=== PATIENT | female | born 1955 | race Caucasian/White ===

== ENCOUNTER 2019-06-05 04:26 | Inpatient (IN) | payer OTHER ==
[~2019-06-05] VITALS: Ht 165.1 cm; Wt 99.8 kg
[~2019-06-05 04:26] MED LIST: ERGO400 PO; LOSARTAN POTAS100 MG PO; METF500 PO; NATURAL LUTEIN20 MG PO; POTASSIUM CITR15 MEQ; Synthroid175 MCG PO; Vitamin B Comple1 EA PO
[2019-06-05 04:40] LABS: Calcium, Ionized (POC) 1.24 mmol/L (1.10-1.46); Chloride (POC) 104 mmol/L (98-108); Creatinine (POC) 0.7 mg/dL (0.6-1.0); Glucose (ISTAT POC) 237 mg/dL (70-99); Hemoglobin (POC) 15.3 g/dL (12.0-16.0); Potassium (POC) 3.9 mmol/L (3.5-5.5); Sodium (POC) 140 mmol/L (135-148); Total CO2 (POC) 27 mmol/L (21-32)
[2019-06-05 04:42] LABS: Hematocrit 45.3 % (33.0-51.0); Hemoglobin 15.2 g/dL (11.5-16.0); Mean Corpuscular HGB Conc 33.6 g/dL (31.5-36.5); Mean Corpuscular Volume 92 fL (80-100); Mean Platelet Volume 10.4 fL (9.1-12.4); Platelet Count 259 K/mm3 (150-400); RDW Coefficient Variation 13.2 % (11.7-14.2); RDW Standard Deviation 44.1 fL (35.1-46.3); White Blood Cell Count 15.83 K/mm3 (4.00-11.30)
[2019-06-05 04:56] LABS: International Normalized Ratio 0.98; Prothrombin Time Results 10.4 Sec (9.7-11.5)
[2019-06-05] MEDS ORDERED: METOPROLOL (04:57)
[2019-06-05] MEDS ORDERED: ALLOPURINOL (04:57)
[2019-06-05] MEDS ORDERED: LASIX (04:57)
[2019-06-05 05:04] LABS: Alanine Aminotransfer (ALT/SGP 132 U/L (12-78); Albumin, Blood 3.7 g/dL (3.4-5.0); Alk Phos 81 U/L (50-136); Anion Gap 8 mmol/L (6-16); Aspartate Aminotrans (AST/SGOT 79 U/L (12-37); Bilirubin, Total 0.5 mg/dL (0.1-1.0); Blood Urea Nitrogen 27 mg/dL (8-24); CHOL/HDL RATIO 9.3; CO2, Blood 27 mmol/L (21-32); Calcium, Blood 9.9 mg/dL (8.5-10.1); Chloride, Blood 105 mmol/L (98-108); Cholesterol 214 mg/dL (50-200); Creatinine, Blood 0.68 mg/dL (0.40-1.00); Globulin, Blood 3.7 g/dL (2.2-4.0); Glomerular Filtration Rate >60 (60-); Glucose, Blood 233 mg/dL (70-99); HDL Cholesterol 23 mg/dL (>39); LDL/HDL RATIO 5.5; Low Density Lipoprotein Chol 127 mg/dL (0-110); Magnesium, Blood 2.1 mg/dL (1.6-2.4); Potassium, Blood 3.9 mmol/L (3.5-5.5); Sodium, Blood 140 mmol/L (136-145); Total Protein, Blood 7.4 g/dL (6.4-8.2); Triglycerides 319 mg/dL (30-160); Very Low Density Lipoprot Chol 63 mg/dL (6-32)
--- NOTE | 2019-06-05 06:16 | NUR ---
ADMIT TO ICU-6 FROM SPLUNK ARCHITECT. PT IS ALERT, VSS, MONITOR SHOWS NSR 80'S. R FOREARM W ARMBOARD IN PLACE, TR BAND IS FULLY INFLATED W 10CC. R HAND IS PINK, WARM & SENSATION INTACT. NO BLEEDING AT SITE. MOVEMENT RESTRICTIONS REVIEWED W PT, AND VERBALIZES UNDERSTANDING. CALL LIGHT IN REACH & REVIEWED. REPORT TO DAYSHIFT.
--- NOTE | 2019-06-05 07:30 | NUR ---
BEGINNING OF SHIFT Assumed care at 0700. Bedside report received from Christina HARMON. Pt alert and oriented at time of report. States she is feeling much better than when she arrived to the hospital. Does not have chest pain. 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 Pt on 4 LPM NC. Does not wear O2 at baseline. SpO2 94%. Right wrist transradial access. TR band in place. Bruising noted beneath TR band. No drainage noted. Wrist immobilization board in place. Right wrist activity limitation reviewed. Bed in lowest position. Call light in reach. Pt denies need at this time.
[2019-06-05] MEDS ORDERED: ALLO100 PO (08:10)
[2019-06-05] MEDS ORDERED: FURO20 PO (08:11)
--- NOTE | 2019-06-05 08:39 | NUR ---
UPDATE Pt OOB to use commode. Sat in chair for about 45 minutes. Tolerating activity well. Meal tray at bedside. This RN reminded pt that she cannot use right hand to eat. 2 mL air removed from TR band.
--- NOTE | 2019-06-05 08:48 | NUR ---
CALL PLACED TO DR ALMANZA Inquired if provider wanted AM brilinta to be given as pt received 180 mg in ED. Brilinta to start tonight. Notified provider of pt's hypertension. Requested PRN meds for BP. Provider states plan to manage BP with current ordered medication. Notified provider of bruising to TR site. No additional orders at this time.
--- NOTE | 2019-06-05 11:02 | NUR ---
ECHOCARDIOGRAM COMPLETED
--- NOTE | 2019-06-05 13:48 | NUR ---
UPDATE Pt on room air since 0900. SpO2 90% or greater. Pt continues to tolerate OOB activity well. TR band off patient. Site dressed with tegaderm. Wrist immobilization board remains in place. Pt visiting with family/friends at bedside.
[2019-06-05] MEDS ORDERED: METO50ER PO (14:06)
[2019-06-05] MEDS ORDERED: EUTHYROX150 MCG PO (14:07)
[2019-06-05] MEDS ORDERED: POTA10T PO (14:10)
[2019-06-05] MEDS ORDERED: JARDIANCE10 MG PO (14:13)
--- NOTE | 2019-06-05 15:15 | NUR ---
UPDATE Discussed blood sugars with Dr Osorio. Also discussed home dose of synthroid. New orders given. Updated provider on pt condition, level of activity, and heart rate/rhtyhm per monitor. Pt okay for PCU status. Bedside report given to Di HARMON. Pt taken to PCU 9 via wheelchair, accomapnied by family and PCT Tanesha.
--- NOTE | 2019-06-05 18:33 | NUR ---
SHIFT SUMMARY. PT WAS TRANSFER FROM ICU, PT IS S/P ANGIO W/STENT PLACEMENT. PT HAS BEEN HYPERTENSIVE, PROVIDER AWARE AND MEDICATIONS GIVEN. PT HAS BEEN IND/SBA IN THE ROOM. R RADIAL SITE IS C/D/I SMALL AREA OF BRUISING NOTED NO HEMATOMA NOTED , PT DENIES ANY CHEST PAIN/PRESSURE N/V OR SOB. PT HAS FAMILY AT THE BEDSIDE. WILL CONTINUE TO MONITOR UNTIL REPORT IS GIVEN TO ONCOMING RN.
--- NOTE | 2019-06-05 20:00 | NUR ---
ASSUMED CARE PT IS ALEXIS CONCEPCIONX4 AND SITTING UP IN BED RESTING. R RADIAL SITE WITH CLEAR OPSITE DRESSING. THERE IS SLIGHT BRUISING AND SWELLING ABOVE RADIAL SITE THAT HAS REMAINED UNCHANGED PER DAYSHIFT RN. NO NOTED HEMATOMA OR DRAINAGE. ARM BOARD IN PLACE, PT PROVIDED WITH REMINDER TO DECREASE USAGE OF L ARM TEMPORARILY. WILL CONTINUE WITH ASSESSMENT AND MONITORING. BED IN LOW POSITION, CALL LIGHT IN REACH.
[2019-06-06 05:20] LABS: BASOPHILS ABSOLUTE AUTO 0.07 K/mm3 (0.00-0.23); BASOPHILS PERCENT AUTO 1 % (0-2); EOSINOPHILS ABSOLUTE AUTO 0.14 K/mm3 (0.00-0.68); EOSINOPHILS PERCENT AUTO 1 % (0-6); Hematocrit 43.5 % (33.0-51.0); Hemoglobin 14.2 g/dL (11.5-16.0); IMMATURE GRAN ABSOLUTE AUTO 0.05 K/mm3 (0.00-0.10); IMMATURE GRAN PERCENT AUTO 0 % (0-1); LYMPHOCYTES ABSOLUTE AUTO 1.83 K/mm3 (0.84-5.20); LYMPHOCYTES PERCENT AUTO 14 % (21-46); MONOCYTES ABSOLUTE AUTO 1.09 K/mm3 (0.16-1.47); MONOCYTES PERCENT AUTO 8 % (4-13); Mean Corpuscular HGB 30.7 pg (26.0-34.0); Mean Corpuscular HGB Conc 32.6 g/dL (31.5-36.5); Mean Corpuscular Volume 94 fL (80-100); Mean Platelet Volume 10.3 fL (9.1-12.4); NEUTROPHILS ABSOLUTE AUTO 9.82 K/mm3 (1.96-9.15); NEUTROPHILS PERCENT AUTO 76 % (41-73); Platelet Count 243 K/mm3 (150-400); RDW Coefficient Variation 13.7 % (11.7-14.2); Red Blood Cell Count 4.62 M/mm3 (3.80-5.20)
[2019-06-06 06:08] LABS: Anion Gap 6 mmol/L (6-16); Blood Urea Nitrogen 19 mg/dL (8-24); CO2, Blood 27 mmol/L (21-32); Calcium, Blood 10.5 mg/dL (8.5-10.1); Chloride, Blood 103 mmol/L (98-108); Creatinine, Blood 0.71 mg/dL (0.40-1.00); Glomerular Filtration Rate >60 (60-); Glucose, Blood 195 mg/dL (70-99); Sodium, Blood 136 mmol/L (136-145)
--- NOTE | 2019-06-06 06:18 | NUR ---
SHIFT SUMMARY PT HAS REMAINED AOX4 THROUGHOUT SHIFT. VSS. PLEASANT AND COOPERATIVE WITH CARE. PT HAS RESTED WELL THROUGHOUT MUCH OF THE NIGHT, WAKING EASILY FOR CARE. PT CONTINUES TO AMBULATE INDEPENDENTLY TO THE RESTROOM WITHOUT DIFFICULTY. R RADIAL SITE HAS REMAINED UNCHANGED THROUGHOUT THE NIGHT. PT DENIES PAIN TO RADIAL SITE OR FOREARM. DENIES PAIN OR DYSPNEA. NO OTHER CHANGES NOTED FROM INITIAL ASSESSMENT. WILL CONTINUE TO MONITOR AND REPORT TO ONCOMING SHIFT RN. BED IN LOW POSITION, CALL LIGHT IN REACH.
--- NOTE | 2019-06-06 07:49 | NUR ---
AM NOTE. ASSUMED CARE OF PT APROX 0700. PT IS A&Ox4 AND SBA/IND IN THE ROOM. PT IS S/P ANGIO W/STENT PLACEMENT. PT DENEIS CHEST PAIN BUT STATES SHE HAS SLIGHT SOB. FINE CRACKELS NOTED IN THE PT'S R MID LOBE, OTHER LOBES CLEAR. PT IS ON RA WITH O2 SATS >93%. PT'S VS STABLE. R RADIAL SITE IS C/D/I AND UNCHANGED FROM PREVIOUS ASSESSMENT. WILL CONTINUE TO MONITOR.
[2019-06-06] MEDS ORDERED: ASPI81CH PO (13:04)
[2019-06-06] MEDS ORDERED: ATOR80 PO (13:05)
[2019-06-06] MEDS ORDERED: CARV6.25 PO (13:06)
[2019-06-06] MEDS ORDERED: CLOP75 PO (13:07)
[2019-06-06] MEDS ORDERED: HYDCHL25 PO (13:08)
[2019-06-06] MEDS ORDERED: NITR.4SL SL (13:09)
--- NOTE | 2019-06-06 14:38 | NUR ---
PT D/C. PT D/C'D HOME. MEDICATIONS WERE CALLED IN TO PT'S PHARMACY OF CHOICE, MEDICATION EDUCATION PROVIDED AND D/C INSTRUCTIONS WELL. PT DENIES ANY CHEST PAIN/PRESSURE N/V OR SOB UPON D/C. IV WAS REMOVED WNL. ALL PT'S BELONGINGS PACKED AND SENT WITH PT.
== END 2019-06-06 14:26 | disposition home or self-care (01) | DRG 247 ==
LOC: ER 04:26 → ICUE 04:41 → ICUW 04:41 → ICUE 04:58 → PCU 15:38
PROVIDERS: Emergency Medicine; ADMIT Internal Medicine Cardiovascular Disease
PROC: 027034Z Dilation of Coronary Artery, One Artery with Drug-eluting Intraluminal Device, Percutaneous Approach (ICD-10-PCS; principal; 2019-06-05)
PROC: 02703ZZ Dilation of Coronary Artery, One Artery, Percutaneous Approach (ICD-10-PCS; 2019-06-05)
PROC: B240ZZ3 Ultrasonography of Single Coronary Artery, Intravascular (ICD-10-PCS; 2019-06-05)
PROC: B2111ZZ Fluoroscopy of Multiple Coronary Arteries using Low Osmolar Contrast (ICD-10-PCS; 2019-06-05)
DX: I21.09 ST elevation (STEMI) myocardial infarction involving other coronary artery of anterior wall (principal); E03.9 Hypothyroidism, unspecified; I10 Essential (primary) hypertension; E11.9 Type 2 diabetes mellitus without complications; Z79.84 Long term (current) use of oral hypoglycemic drugs
CPT/HCPCS: 36415; 71045; 80047; 80048; 80053; 80061; 82947; 83735; 84484; 85014; 85025; 85027; 85347; 85610; 85730; 86850; 86900; 86901; 92978; 93005; 93010; 93306; 93454; 96374; 99152; 99153; 99285-25; A9270; C1725; C1753; C1769; C1874; C1887; C1894; C9606; J0153; J1644; J2250; J2405; J3010; J7030; Q9967

== ENCOUNTER 2019-07-10 06:44 | Day surgery (SDC) | payer SELFPAY ==
[~2019-07-10] VITALS: Ht 167.6 cm; Wt 100.0 kg
[~2019-07-10 06:44] MED LIST changes: +ALBU3IS; +ALLO100 PO; +ALLOPURINOL; +AMLO10 PO; +ASPI81CH PO; +ATOR80 PO; +CARV6.25 PO; +CLOP75 PO; +EUTHYROX150 MCG PO; +EYE HEALTH ADU1 EACH PO; +FURO20 PO; +HYDCHL25 PO; +JARDIANCE10 MG PO; +LASIX; +METO50ER PO; +METOPROLOL; +NITR.4SL SL; +POTA10T PO
[2019-07-10] MEDS ORDERED: Zyloprim100 MG PO (07:19)
[2019-07-10] MEDS ORDERED: ATOR40TA PO (07:19)
[2019-07-10] MEDS ORDERED: CARV6.25 PO (07:20)
[2019-07-10] MEDS ORDERED: FURO20 PO (07:20)
[2019-07-10] MEDS ORDERED: HYDCHL25 PO (07:21)
[2019-07-10] MEDS ORDERED: LOSA50 PO (07:21)
[2019-07-10] MEDS ORDERED: THERA-D2000 UNIT PO (07:21)
[2019-07-10] MEDS ORDERED: POTA10T PO (07:22)
--- NOTE | 2019-07-10 10:41 | NUR ---
3cc'S AIR REMOVED FROM RIGHT RADIAL TR BAND. NO BLEEDING OR SWELLING NOTED. WILL CONTINUE TO REMOVE AIR IN SMALL AMOUNTS EVERY 5 MINUTES UNTIL TR BAND IS FULLY DEFLATED.
--- NOTE | 2019-07-10 12:14 | NUR ---
PT UP TO RESTROOM AND SELF DRESSED WITH NO COMPLICATIONS. NO BLEEDING OR HEMATOMA NOTED FROM SITE. CLOTH DOT DRESSING APPLIED TO SITE WITH BRACE. PT STATES UNDERSTANDING OF DC AND SITE CARE INSTRUCTIONS. PT PLACED IN SLING. VSS. AOX4. DENIES CP. IV REMOVED WITH CATH INTACT. PT DENIES ANY QUESTIONS OR CONCERNS. PT WHEELED TO ENTERENCE BY RN.
== END 2019-07-10 12:00 | disposition home or self-care (01) ==
LOC: MHTC 06:44
PROC: 02H03DZ Insertion of Intraluminal Device into Coronary Artery, One Artery, Percutaneous Approach (ICD-10-PCS; principal; 2019-07-10)
PROC: 4A023N7 Measurement of Cardiac Sampling and Pressure, Left Heart, Percutaneous Approach (ICD-10-PCS; principal; 2019-07-10)
PROC: B201YZZ Plain Radiography of Multiple Coronary Arteries using Other Contrast (ICD-10-PCS; principal; 2019-07-10)
DX: I25.119 Atherosclerotic heart disease of native coronary artery with unspecified angina pectoris (principal); I21.3 ST elevation (STEMI) myocardial infarction of unspecified site; I10 Essential (primary) hypertension; E11.9 Type 2 diabetes mellitus without complications; E78.00 Pure hypercholesterolemia, unspecified; E03.9 Hypothyroidism, unspecified; G47.33 Obstructive sleep apnea (adult) (pediatric); E66.9 Obesity, unspecified; F32.9 Major depressive disorder, single episode, unspecified; Z79.84 Long term (current) use of oral hypoglycemic drugs; Z95.5 Presence of coronary angioplasty implant and graft; Z79.899 Other long term (current) drug therapy; Z88.0 Allergy status to penicillin; Z88.5 Allergy status to narcotic agent; Z68.35 Body mass index [BMI] 35.0-35.9, adult; Z88.8 Allergy status to other drugs, medicaments and biological substances
CPT/HCPCS: 76937; 82947; 85347; 93454; 99152; 99153; A9270; C1725; C1769; C1874; C1887; C1894; C9600; J1644; J2250; J3010; J7030; Q9967

== ENCOUNTER 2021-04-15 00:58 | Day surgery (SDC) | payer SELFPAY ==
[~2021-04-15 00:58] MED LIST changes: +ATOR40TA PO; +LOSA50 PO; +THERA-D2000 UNIT PO; +Zyloprim100 MG PO
--- NOTE | 2021-04-15 16:58 | NUR ---
WALKED PT TO THE DOUBLE DOORS. NO C/O SOB OR ANY PROBLEMS.
== END 2021-04-15 15:51 | disposition home or self-care (01) ==
LOC: ATC 00:58
DX: U07.1 COVID-19 (principal); Z88.1 Allergy status to other antibiotic agents; Z88.5 Allergy status to narcotic agent; Z88.0 Allergy status to penicillin
CPT/HCPCS: 96365; Q0243

== ENCOUNTER → 2021-06-10 | Outpatient (CLI) | payer OTHER, SELFPAY | END | disposition home or self-care (01) | LOC: LAB 14:46 → LAB SHORT 14:46 | DX: D22.5 Melanocytic nevi of trunk (principal) | CPT/HCPCS: 88305 ==

== ENCOUNTER 2021-12-05 05:58 | Day surgery (SDC) | payer OTHER ==
[~2021-12-05] VITALS: Ht 165.1 cm; Wt 90.9 kg
[~2021-12-05 05:58] MED LIST changes: +ALLEGRA ALLERG180 MG PO; +MAGNESIUM OXID500 MG PO; +TOPROL XL25 MG PO; +Vitamin B-12100 MCG PO; +[UNRECOGNIZED DRUG - CODE] PO
--- NOTE | 2021-12-05 10:56 | NUR ---
10cc air removed from R wrist TR Band. -bleedding or swelling.
--- NOTE | 2021-12-05 11:09 | NUR ---
R WRIST TR BAND REMOVED. -BLEEDING OR SWELLING. R WRIST SPLINT REAPPLIED. LAC IV REMOVED. PT AND FAMILY VERBALIZED UNDERSTANDING OF WRITTEN AND VERBAL D/C INST. PT TAKEN OUT OF THE HRT CENTER VIA W/C.
== END 2021-12-05 11:10 | disposition home or self-care (01) ==
LOC: MHTC 05:58
DX: I25.10 Atherosclerotic heart disease of native coronary artery without angina pectoris (principal); I24.9 Acute ischemic heart disease, unspecified; R07.89 Other chest pain; I10 Essential (primary) hypertension; E78.5 Hyperlipidemia, unspecified; R94.39 Abnormal result of other cardiovascular function study; E66.01 Morbid (severe) obesity due to excess calories; E03.9 Hypothyroidism, unspecified; E11.9 Type 2 diabetes mellitus without complications; M10.9 Gout, unspecified; G47.30 Sleep apnea, unspecified; I25.2 Old myocardial infarction; Z68.33 Body mass index [BMI] 33.0-33.9, adult; Z87.891 Personal history of nicotine dependence; Z88.1 Allergy status to other antibiotic agents; Z88.5 Allergy status to narcotic agent; Z88.0 Allergy status to penicillin
CPT/HCPCS: 76937; 85347; 93454; 99152; 99153; C1725; C1769; C1874; C1887; C1894; C8929; C9600; J1644; J1940; J2250; J3010; J7030; J7050; Q9957; Q9967

== ENCOUNTER → 2022-01-13 | Outpatient (CLI) | payer OTHER | END | disposition home or self-care (01) | LOC: LAB SHORT 11:34 | DX: L91.8 Other hypertrophic disorders of the skin (principal); L82.1 Other seborrheic keratosis | CPT/HCPCS: 88304 ==

== ENCOUNTER 2022-08-04 11:43 | Day surgery (SDC) | payer OTHER | END 2022-08-04 13:50 | disposition home or self-care (01) | LOC: ORSCSDS 11:43 | PROVIDERS: Surgery | PROC: 0DBM8ZX Excision of Descending Colon, Via Natural or Artificial Opening Endoscopic, Diagnostic (ICD-10-PCS; principal; 2022-08-04 13:00) | PROC: 0DBP8ZX Excision of Rectum, Via Natural or Artificial Opening Endoscopic, Diagnostic (ICD-10-PCS; principal; 2022-08-04 13:00) | PROC: 0DBE8ZX Excision of Large Intestine, Via Natural or Artificial Opening Endoscopic, Diagnostic (ICD-10-PCS; principal; 2022-08-04 13:00) | PROC: 0DBL8ZX Excision of Transverse Colon, Via Natural or Artificial Opening Endoscopic, Diagnostic (ICD-10-PCS; principal; 2022-08-04 13:00) | DX: R19.7 Diarrhea, unspecified (principal); K52.9 Noninfective gastroenteritis and colitis, unspecified; K63.5 Polyp of colon; K62.1 Rectal polyp; K64.4 Residual hemorrhoidal skin tags; E11.9 Type 2 diabetes mellitus without complications; I10 Essential (primary) hypertension; E03.9 Hypothyroidism, unspecified; Z87.891 Personal history of nicotine dependence; Z85.820 Personal history of malignant melanoma of skin; Z79.899 Other long term (current) drug therapy; Z79.02 Long term (current) use of antithrombotics/antiplatelets | CPT/HCPCS: 82947; 88305; J2704; J7120 ==